=== PATIENT | female | born 1930 | race Caucasian/White ===

== ENCOUNTER 2017-07-19 20:38 | Emergency (ER) | payer MEDICARE, OTHER ==
[~2017-07-19] VITALS: Ht 162.6 cm; Wt 79.4 kg
[~2017-07-19 20:38] MED LIST: ASPIRIN CHILDRE81 MG PO; BACTRIM 400 MG-1 TAB PO; BACTRIM DS 8001 TAB PO; CEPHALEXIN500 MG PO; IRON TABLETS325 MG PO; KEFLEX 500MG.500 MG PO; KEFLEX500 M1 PO; LEVOTHYROXIN0.112 M1 PO; NORVASC 10MG. T10 MG PO; OMEGA 31000 MG PO; PLAVIX 75MG TAB75 MG PO; PRADAXA150 MG PO; PROTEGRA ANTIOX1 SGL PO; VYTORIN 10 MG-41 TAB PO; XANAX 0.5MG TA0.5 MG PO; ZOLOFT100 MG PO
--- NOTE | 2017-07-19 20:54 | Emergency Room Report ---
History of Present Illness Time Seen by 2045 Presenting Problem in Triage Pt arrived:Wheelchair Presenting Problem:LEFT KNEE PAIN WORSE WITH FLEXION. 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 N Clinical Suspician of Infection? N Mental Status: 1 - Regular (Normal Baseline) Sepsis Risk:Low Sepsis Risk Have you (or family members/close friends) recently traveled outside the [place]? N If Yes, where/when: Have you had exposure to infectious disease within the past month? N TB? Other? Specify: Source patient, RN notes reviewed, family, old records Exam Limitations no limitations Comment atraumatic injury to lt knee this afternoon - no fall or known injury - pt has hx of djd- Cardiac Chest Pain Chest pain indicative of cardiac No Timing/Duration this evening Severity moderate ALLERGIES Coded Allergies: No Known Allergies (02/04/16) Home Medications Active Scripts SULFAMETHOXAZOLE/TRIMETHOPRIM (Sulfamethoxazole-Tmp Ds Tablet) 1 TAB PO BID #6 TAB Prov: 11/16/14 SULFAMETHOXAZOLE/TRIMETHOPRIM (Bactrim 400-80 MG Tablet) 1 TAB PO BID #14 TAB Prov: 02/04/16 CEPHALEXIN (Keflex 500MG Capsule) 500 MG PO QID #28 CAP Prov: 07/19/15 Ferrous Sulfate (Iron Tablet) 325 MG PO DAILY #30 Ref 2 Prov: 06/20/12 Reported Medications Ezetimibe/Simvastatin (Vytorin 10-40 MG Tablet) 1 TAB PO DAILY Alprazolam (Xanax 0.5MG) 0.5 MG PO DAILY Levothyroxine Sodium (Levothyroxine 0.112MG) 0.125 MG PO DAILY AMLODIPINE BESYLATE (Norvasc) 10 MG PO DAILY SERTRALINE HYDROCHLORIDE (Zoloft 100MG) 100 MG PO DAILY ASPIRIN (Aspirin) 81 MG PO DAILY History Medical History General Angina: No [place]: No Hypertension? Yes Hyperlipidemia? No CHF? No COPD? No Asthma? No Hernia? Yes Thyroid Problems? Yes CVA? Yes Seizures? No Diabetes? No End Stage Renal Disease? No UTI? No Stones? No GB Disease: No Nephritic Syndrome? No Asplenia? No Hepatitis? No Cataracts? No Glaucoma? No MRSA? No TB? No Cancer? No Immunization Hx DT/Tetanus 1-4 YRS Flu [id number] Pneumonia Received In Past Surgical Hx Previous Surgery?Y DENISE THYROID RT ANKLE PINNING PACEMAKER PLACED 2010 Family History Family Hx Diabetes Yes CAD No Hypertension No Hyperlipidemia No Cancer Yes TB No Social History Smoking Hx Smoker: Never Smoker Tobacco: No Type Cigarettes Alcohol Alcohol: No Drugs none Review of Systems All Other Systems Reviewed and Negative Constitutional denies fever Eyes denies drainage ENT denies: ear discharge. Respiratory denies cough, denies shortness of breath, denies wheezing Cardiovascular denies chest pain, denies palpitations, denies syncope Gastrointestinal denies abdominal pain, denies diarrhea, denies vomiting Genitourinary denies: dysuria, frequency, hesitancy, hematuria. Musculoskeletal see HPI, denies back pain, joint pain, joint swelling, denies neck pain Skin denies rash Psychiatric/Neurological denies headache, denies seizure Physical Exam Vital Signs Vital Signs Date Time Temp Pulse Resp B/P Pulse O2 O2 Flow FiO2 Ox Delivery Rate 07/19 2041 98.9 71 20 174/79 95 - WBC >12,000 or <4,000 or 10% bands? 2 or more SIRS Criteria Met? B/P:174/79 MAP:110 Creatinine >2.0? UA output<0.5ml/kg/hr for 2 hrs? Platelet count >100,000? Lactate >2.0mmol/1? INR >1.2 or PTT > than 60 sec? Evidence of Organ Dysfunction? Provider documented clinical suspician of infection? N Sepsis Criteria Count: 1 Sepsis Risk: Low Sepsis Risk General Appearance no apparent distress Eye Exam - bilateral eye PERRL, bilateral eye EOMI Ear, Nose, Throat normal ENT inspection Neck supple Respiratory Status No: respiratory distress. 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 No Results/Orders Orders Procedure Date/time Status KNEE-3 VIEWS-LT 07/19 2053 Active XRAY/CT/US XRAY/CT/US XRAY knee XR interpretation by reviewed by me Xray Results no fracture seen, abnormal Departure Departure Time of Disposition 2132 Disposition DC Home or Self Care(routine) Clinical Impression Primary Impression: Arthritis of knee, left Condition STABLE Referrals Ronaldo Toribio MD (Family) Patient Instructions DI for Arthralgia Additional Instructions use meds and call pcp friday for follow up and wt bearing as [place] Discharge Counseling Counseled pt/family regarding diagnosis, test results, medications/RX, follow up needs Prescriptions Current Visit Scripts Prednisone (Prednisone 20MG) 20 MG PO BID #10 TAB ED Critical Care Critical Care No at [id number]
--- NOTE | 2017-07-19 20:54 | Emergency Room Report ---
History of Present Illness Time Seen by 2045 Presenting Problem in Triage Pt arrived:Wheelchair Presenting Problem:LEFT KNEE PAIN WORSE WITH FLEXION. 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 N Clinical Suspician of Infection? N Mental Status: 1 - Regular (Normal Baseline) Sepsis Risk:Low Sepsis Risk Have you (or family members/close friends) recently traveled outside the [place]? N If Yes, where/when: Have you had exposure to infectious disease within the past month? N TB? Other? Specify: Source patient, RN notes reviewed, family, old records Exam Limitations no limitations Comment atraumatic injury to lt knee this afternoon - no fall or known injury - pt has hx of djd- Cardiac Chest Pain Chest pain indicative of cardiac No Timing/Duration this evening Severity moderate ALLERGIES Coded Allergies: No Known Allergies (02/04/16) Home Medications Active Scripts SULFAMETHOXAZOLE/TRIMETHOPRIM (Sulfamethoxazole-Tmp Ds Tablet) 1 TAB PO BID #6 TAB Prov: 11/16/14 SULFAMETHOXAZOLE/TRIMETHOPRIM (Bactrim 400-80 MG Tablet) 1 TAB PO BID #14 TAB Prov: 02/04/16 CEPHALEXIN (Keflex 500MG Capsule) 500 MG PO QID #28 CAP Prov: 07/19/15 Ferrous Sulfate (Iron Tablet) 325 MG PO DAILY #30 Ref 2 Prov: 06/20/12 Reported Medications Ezetimibe/Simvastatin (Vytorin 10-40 MG Tablet) 1 TAB PO DAILY Alprazolam (Xanax 0.5MG) 0.5 MG PO DAILY Levothyroxine Sodium (Levothyroxine 0.112MG) 0.125 MG PO DAILY AMLODIPINE BESYLATE (Norvasc) 10 MG PO DAILY SERTRALINE HYDROCHLORIDE (Zoloft 100MG) 100 MG PO DAILY ASPIRIN (Aspirin) 81 MG PO DAILY History Medical History General Angina: No [place]: No Hypertension? Yes Hyperlipidemia? No CHF? No COPD? No Asthma? No Hernia? Yes Thyroid Problems? Yes CVA? Yes Seizures? No Diabetes? No End Stage Renal Disease? No UTI? No Stones? No GB Disease: No Nephritic Syndrome? No Asplenia? No Hepatitis? No Cataracts? No Glaucoma? No MRSA? No TB? No Cancer? No Immunization Hx DT/Tetanus 1-4 YRS Flu [id number] Pneumonia Received In Past Surgical Hx Previous Surgery?Y DENISE THYROID RT ANKLE PINNING PACEMAKER PLACED 2010 Family History Family Hx Diabetes Yes CAD No Hypertension No Hyperlipidemia No Cancer Yes TB No Social History Smoking Hx Smoker: Never Smoker Tobacco: No Type Cigarettes Alcohol Alcohol: No Drugs none Review of Systems All Other Systems Reviewed and Negative Constitutional denies fever Eyes denies drainage ENT denies: ear discharge. Respiratory denies cough, denies shortness of breath, denies wheezing Cardiovascular denies chest pain, denies palpitations, denies syncope Gastrointestinal denies abdominal pain, denies diarrhea, denies vomiting Genitourinary denies: dysuria, frequency, hesitancy, hematuria. Musculoskeletal see HPI, denies back pain, joint pain, joint swelling, denies neck pain Skin denies rash Psychiatric/Neurological denies headache, denies seizure Physical Exam Vital Signs Vital Signs Date Time Temp Pulse Resp B/P Pulse O2 O2 Flow FiO2 Ox Delivery Rate 07/19 2041 98.9 71 20 174/79 95 - WBC >12,000 or <4,000 or 10% bands? 2 or more SIRS Criteria Met? B/P:174/79 MAP:110 Creatinine >2.0? UA output<0.5ml/kg/hr for 2 hrs? Platelet count >100,000? Lactate >2.0mmol/1? INR >1.2 or PTT > than 60 sec? Evidence of Organ Dysfunction? Provider documented clinical suspician of infection? N Sepsis Criteria Count: 1 Sepsis Risk: Low Sepsis Risk General Appearance no apparent distress Eye Exam - bilateral eye PERRL, bilateral eye EOMI Ear, Nose, Throat normal ENT inspection Neck supple Respiratory Status No: respiratory distress. 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 No Results/Orders Orders Procedure Date/time Status KNEE-3 VIEWS-LT 07/19 2053 Active XRAY/CT/US XRAY/CT/US XRAY knee XR interpretation by reviewed by me Xray Results no fracture seen, abnormal Departure Departure Time of Disposition 2132 Disposition DC Home or Self Care(routine) Clinical Impression Primary Impression: Arthritis of knee, left Condition STABLE Referrals Ronaldo Toribio MD (Family) Patient Instructions DI for Arthralgia Additional Instructions use meds and call pcp friday for follow up and wt bearing as napoleon Discharge Counseling Counseled pt/family regarding diagnosis, test results, medications/RX, follow up needs Prescriptions Current Visit Scripts Prednisone (Prednisone 20MG) 20 MG PO BID #10 TAB ED Critical Care Critical Care No at [id number]
[2017-07-19] MEDS ORDERED: PREDNISONE 20MG20 MG PO (21:43)
[2017-07-19 21:59] VITALS: BP 180/78
--- NOTE | 2017-07-20 08:03 | RADIOLOGY REPORT PS360 ---
KNEE-3 VIEWS-LT HISTORY: Left knee pain PAIN ORDERING PHYSICIAN: Penny Parks MD PATIENT AGE: 86 years COMPARISON: None FINDINGS: Moderate osteoarthritic changes are present involving the lateral compartment with mild osteoarthritis of the medial compartment and patellofemoral joint. Suprapatellar effusion is present. Calcification is noted along the major aspect of the knee joint consistent with a loose body measuring 11 mm. No acute fracture or dislocation. No lytic or blastic change. IMPRESSION: Osteoarthritis with knee joint effusion and intra-articular loose body
== END 2017-07-19 22:00 | disposition home or self-care (01) ==
LOC: ER 20:38
DX: M13.862 Other specified arthritis, left knee (principal); Z86.73 Personal history of transient ischemic attack (TIA), and cerebral infarction without residual deficits; I10 Essential (primary) hypertension; E07.9 Disorder of thyroid, unspecified; Z79.82 Long term (current) use of aspirin; Z79.899 Other long term (current) drug therapy

== ENCOUNTER 2017-07-31 18:45 | Observation (INO) | payer MEDICARE, OTHER ==
[~2017-07-31] VITALS: Ht 162.6 cm; Wt 82.3 kg
[~2017-07-31 18:45] MED LIST changes: +PREDNISONE 20MG20 MG PO
[2017-07-31 18:47] VITALS: BP 164/78
[2017-07-31] MEDS ORDERED: XARELTO20 MG PO (18:52)
[2017-07-31] MEDS ORDERED: ATENOLOL25 MG PO (18:53)
[2017-07-31] MEDS ORDERED: SIMVASTATIN20 MG PO (18:53)
--- NOTE | 2017-07-31 18:56 | Emergency Room Report ---
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 PT REPORTS FALL 2 WEEKS AGO, WAS SEEN IN ER AT THAT TIME. 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 N Clinical Suspician of Infection? N Mental Status: 1 - Regular (Normal Baseline) Sepsis Risk:Low Sepsis Risk Have you (or family members/close friends) recently traveled outside the [place]? N If Yes, where/when: Have you had exposure to infectious disease within the past month? N TB? Other? Specify: Source patient, RN notes reviewed, family, RN/MD Exam Limitations no limitations Comment This is a 86-year-old lady brought into the ER by EMS with LEFT knee pain, nontraumatic, sudden onset half an hour prior to arrival, while attempting to get into her car, in a parking lot. Patient had a similar episode, when she was also seen in this ER, with pain in the same joint, LEFT knee. At the time of her LEFT x-ray was negative, patient was discharged home on prednisone for 5 days, which actually helped her symptoms. Patient is currently on Xarelto, due to her Hx of atrial fibrillation. ALLERGIES Coded Allergies: No Known Allergies (02/04/16) Home Medications Active Scripts Ferrous Sulfate (Iron Tablet) 325 MG PO DAILY #30 Ref 2 Prov: 06/20/12 Reported Medications Alprazolam (Xanax 0.5MG) 0.5 MG PO DAILY Levothyroxine Sodium (Levothyroxine 0.112MG) 0.125 MG PO DAILY SERTRALINE HYDROCHLORIDE (Zoloft 100MG) 100 MG PO DAILY ASPIRIN (Aspirin) 81 MG PO DAILY Rivaroxaban (Xarelto) 15 MG PO DAILY 90 Days Atenolol (Atenolol) 25 MG PO DAILY Simvastatin 20 MG PO DAILY #90 (Angela HENDRICKS,Sulaiman Walker) History Medical History General CAD? No Angina: No [place]: No Hypertension? Yes Hyperlipidemia? No CHF? No DVT? No PE? No COPD? No Asthma? No Anemia? No GERD? No Gastric ulcers? No GI Bleed? No Hernia? Yes Thyroid Problems? Yes Hypothyroidism? No CVA? No Seizures? No Diabetes? No Renal Insuffiency? No End Stage Renal Disease? No UTI? No Stones? No GB Disease: No Nephritic Syndrome? No Asplenia? No Hepatitis? No Sickle Cell Disease? No Arthritis? No Migraines? No Cataracts? No Glaucoma? No MRSA? No HIV? No TB? No Anxiety? No Depression? No Cancer? No More? No Immunization Hx DT/Tetanus 1-4 YRS Flu [id number] Pneumonia Received In Past Surgical Hx Previous Surgery?Y DENISE THYROID RT ANKLE PINNING PACEMAKER PLACED 2010 Family History Family Hx Diabetes Yes CAD No Hypertension No Hyperlipidemia No Cancer Yes TB No Social History Smoking Hx Smoker: Never Smoker Tobacco: No Alcohol Alcohol: No (Sulaiman Miller MD) Review of Systems All Other Systems Reviewed and Negative Musculoskeletal joint pain (LEFT knee pain) (Sulaiman Miller MD) Physical Exam Vital Signs Vital Signs Date Time Temp Pulse Resp B/P Pulse O2 O2 Flow FiO2 Ox Delivery Rate 07/31 1941 98.1 76 18 152/107 95 07/31 1847 98.1 73 18 164/78 95 General Appearance normal appearance, WD/WN, mild distress Respiratory Status Yes: trachea midline, chest symmetrical, non tender chest. No: respiratory distress. Lung Sounds bilateral: normal breath sounds, lungs clear. Cardiovascular no peripheral edema, irregularly irregular, pacemaker present Gastrointestinal normal bowel sounds, normal exam, non tender, soft, no organomegaly Extremities LEFT knee tender to palpation, swollen, unable to fully extend or flex LEFT knee. 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 No Comment 20:00 - case signed out to Dr Parks, pending CT scan left knee reading. Results/Orders Current Medication Orders Sig/Carolyn Start time Last Medication Dose Route Stop Time Status Admin Sodium Chloride 10 ML PRN PRN 07/31 2030 AC IV 08/01 2027 Orders Procedure Date/time Status IV SALINE LOCK 07/31 2027 Active SED RATE 07/31 2027 Active COMPLETE METABOLIC PANEL 07/31 2027 Active CBC WITH AUTO DIFF 07/31 2027 Active Decision to admit 07/[address] EXT.LOWER-LT-W/O CONTRAST 07/[address] SCAN REQUEST 07/31 1909 Complete XRAY/CT/US XRAY/CT/US CT knee CT interpretation by discussed w/radiologist Time results known: 2032 CT Results no fracture seen (see report), abnormal (Penny Parks MD) Departure Departure Time of Disposition 1999 Disposition Still a Patient Condition STABLE ED Critical Care Critical Care No (Sulaiman Miller MD) Departure Clinical Impression Primary Impression: Knee internal derangement Qualifiers: Laterality: left Qualified Code: M23.92 - Unspecified internal derangement of left knee Secondary Impressions: Effusion of knee joint, left, Impaired weight bearing, Tricompartment osteoarthritis of left knee Referrals Ronaldo Toribio MD (Family) discussed with dr miranda and dr lori Blanton MD,Samy MIRANDA MD, SARAH BERRIOS (Penny Parks MD) at 195 at 2032
--- NOTE | 2017-07-31 18:56 | Emergency Room Report ---
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 PT REPORTS FALL 2 WEEKS AGO, WAS SEEN IN ER AT THAT TIME. 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 N Clinical Suspician of Infection? N Mental Status: 1 - Regular (Normal Baseline) Sepsis Risk:Low Sepsis Risk Have you (or family members/close friends) recently traveled outside the [place]? N If Yes, where/when: Have you had exposure to infectious disease within the past month? N TB? Other? Specify: Source patient, RN notes reviewed, family, RN/MD Exam Limitations no limitations Comment This is a 86-year-old lady brought into the ER by EMS with LEFT knee pain, nontraumatic, sudden onset half an hour prior to arrival, while attempting to get into her car, in a parking lot. Patient had a similar episode, when she was also seen in this ER, with pain in the same joint, LEFT knee. At the time of her LEFT x-ray was negative, patient was discharged home on prednisone for 5 days, which actually helped her symptoms. Patient is currently on Xarelto, due to her Hx of atrial fibrillation. ALLERGIES Coded Allergies: No Known Allergies (02/04/16) Home Medications Active Scripts Ferrous Sulfate (Iron Tablet) 325 MG PO DAILY #30 Ref 2 Prov: 06/20/12 Reported Medications Alprazolam (Xanax 0.5MG) 0.5 MG PO DAILY Levothyroxine Sodium (Levothyroxine 0.112MG) 0.125 MG PO DAILY SERTRALINE HYDROCHLORIDE (Zoloft 100MG) 100 MG PO DAILY ASPIRIN (Aspirin) 81 MG PO DAILY Rivaroxaban (Xarelto) 15 MG PO DAILY 90 Days Atenolol (Atenolol) 25 MG PO DAILY Simvastatin 20 MG PO DAILY #90 (Angela HENDRICKS,Sulaiman Walker) History Medical History General CAD? No Angina: No [place]: No Hypertension? Yes Hyperlipidemia? No CHF? No DVT? No PE? No COPD? No Asthma? No Anemia? No GERD? No Gastric ulcers? No GI Bleed? No Hernia? Yes Thyroid Problems? Yes Hypothyroidism? No CVA? No Seizures? No Diabetes? No Renal Insuffiency? No End Stage Renal Disease? No UTI? No Stones? No GB Disease: No Nephritic Syndrome? No Asplenia? No Hepatitis? No Sickle Cell Disease? No Arthritis? No Migraines? No Cataracts? No Glaucoma? No MRSA? No HIV? No TB? No Anxiety? No Depression? No Cancer? No More? No Immunization Hx DT/Tetanus 1-4 YRS Flu [id number] Pneumonia Received In Past Surgical Hx Previous Surgery?Y DENISE THYROID RT ANKLE PINNING PACEMAKER PLACED 2010 Family History Family Hx Diabetes Yes CAD No Hypertension No Hyperlipidemia No Cancer Yes TB No Social History Smoking Hx Smoker: Never Smoker Tobacco: No Alcohol Alcohol: No (Sulaiman Miller MD) Review of Systems All Other Systems Reviewed and Negative Musculoskeletal joint pain (LEFT knee pain) (Sulaiman Miller MD) Physical Exam Vital Signs Vital Signs Date Time Temp Pulse Resp B/P Pulse O2 O2 Flow FiO2 Ox Delivery Rate 07/31 1941 98.1 76 18 152/107 95 07/31 1847 98.1 73 18 164/78 95 General Appearance normal appearance, WD/WN, mild distress Respiratory Status Yes: trachea midline, chest symmetrical, non tender chest. No: respiratory distress. Lung Sounds bilateral: normal breath sounds, lungs clear. Cardiovascular no peripheral edema, irregularly irregular, pacemaker present Gastrointestinal normal bowel sounds, normal exam, non tender, soft, no organomegaly Extremities LEFT knee tender to palpation, swollen, unable to fully extend or flex LEFT knee. 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 No Comment 20:00 - case signed out to Dr Parks, pending CT scan left knee reading. Results/Orders Current Medication Orders Sig/Carolyn Start time Last Medication Dose Route Stop Time Status Admin Sodium Chloride 10 ML PRN PRN 07/31 2030 AC IV 08/01 2027 Orders Procedure Date/time Status IV SALINE LOCK 07/31 2027 Active SED RATE 07/31 2027 Active COMPLETE METABOLIC PANEL 07/31 2027 Active CBC WITH AUTO DIFF 07/31 2027 Active Decision to admit 07/[address] EXT.LOWER-LT-W/O CONTRAST 07/[address] SCAN REQUEST 07/31 1909 Complete XRAY/CT/US XRAY/CT/US CT knee CT interpretation by discussed w/radiologist Time results known: 2032 CT Results no fracture seen (see report), abnormal (Penny Parks MD) Departure Departure Time of Disposition 1999 Disposition Still a Patient Condition STABLE ED Critical Care Critical Care No (Sulaiman Miller MD) Departure Clinical Impression Primary Impression: Knee internal derangement Qualifiers: Laterality: left Qualified Code: M23.92 - Unspecified internal derangement of left knee Secondary Impressions: Effusion of knee joint, left, Impaired weight bearing, Tricompartment osteoarthritis of left knee Referrals Ronaldo Toribio MD (Family) discussed with dr miranda and dr lori Blanton MD,Samy MIRANDA MD, SARAH BERRIOS (Penny Parks MD) at 195 at 2032
[2017-07-31 20:51] LABS: HEMOGLOBIN 12.5 g/dL (12.2-16.2); LYMPH # 1.1 K/mm3 (0.7-4.5)
[2017-07-31 21:00] VITALS: BP 155/75
[2017-08-01 04:21] VITALS: BP 153/78
--- NOTE | 2017-08-01 06:24 | Discharge Summary Standard ---
Demographics: Admit date: 07/31/17 Chief complaint: LEFT knee pain PRIMARY DIAGNOSIS: LT KNEE INJURY Allergies: Coded Allergies: No Known Allergies (02/04/16) History of present illness: History of present illness: 86-year-old female with osteoarthritis of the LEFT knee presented to the emergency department for the second time in approximately 2 weeks with LEFT knee pain and difficulty ambulating. Patient had been seen in a couple weeks prior with pain in the LEFT knee and difficulty bending the knee. She was treated with a course of steroids and her knee pain improved. Yesterday afternoon patient had recurrence of knee pain with swelling and inability to bear weight on the affected extremity. Patient contacted my office and I recommended some Aleve and we would work on orthopedic referral as an outpatient. Patient was brought to the emergency department a few hours later by her family. In the emergency department workup was begun. Patient ultimately had a CT scan of the knee which ruled out a fracture, showed tricompartmental osteoarthritis and a large LEFT knee joint effusion. Because of the patient's inability to bear weight and ambulate she was admitted for orthopedic consultation. Patient has not had fevers. She denies illness or malaise. Past medical history: Family HX Family Hx Insignificant No Diabetes Yes CAD No Hypertension No Hyperlipidemia No Cancer Yes TB No Immunization HX DT/Tetanus Unknown Flu [id number] Pneumonia Received In Past TB Test in last year No General CAD? No Angina: No [place]: No Hypertension? Yes Hyperlipidemia? No CHF? No DVT? No PE? No COPD? No Asthma? No Anemia? No GERD? No Gastric ulcers? No GI Bleed? No Hernia? Yes Thyroid Problems? Yes Hypothyroidism? No CVA? No Seizures? No Diabetes? No Renal Insuffiency? No UTI? No Stones? No GB Disease: No Nephritic Syndrome? No Asplenia? No Hepatitis? No Sickle Cell Disease? No Arthritis? No Migraines? No Cataracts? No Glaucoma? No MRSA? No HIV? No TB? No Anxiety? No Depression? No Cancer? No More? 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 No Patien't marital status is Patient's support system is good Review of systems: Constitutional No: chills, diaphoresis, fever, malaise, weakness. Respiratory No: cough, orthopnea, shortness of breath, SOB with excertion. Cardiovascular No chest pain, No edema, No palpitations Gastrointestinal/Abdominal no symptoms reported Genitourinary no symptoms reported. Musculoskeletal no symptoms reported. Neurological Yes: no symptoms reported. Exam: Lab data for last 24 hours: Laboratory Tests 07/31/172039: Sodium 137, Potassium 4.5, Chloride 104, Carbon Dioxide 28, BUN 20 H, Creatinine 0.9, Estimated Creat Clear 55, Estimated GFR (MDRD) 59, Glucose 147 H, Calcium 8.6, Total Bilirubin 0.2, AST 16, ALT 23, Alkaline Phosphatase 58, Total Protein 6.6, Albumin 3.3 L, Globulin 3.3 H, Albumin/Globulin Ratio 1.0 L, PT 10.8, INR 1.00, APTT 25.9, WBC 10.4, RBC 3.93 L, Hgb 12.5, Hct 36.9 L, MCV 93.9, RDW 12.9, Plt Count 144, MPV 8.1, Gran % 82.0 H, Gran # 8.5 H, Lymphocytes % 11.0, Monocytes % 5.9, Eosinophils % 0.8, Basophils % 0.3, Lymphocytes # 1.1, Monocytes # 0.6, Eosinophils # 0.1, Basophils # 0.0, PUBS MCHC 33.9, ESR 11, MCH 31.8 H Admission vital signs: 1ST Vital Signs Result Date Time Pulse Ox 95 07/31 1847 B/P 164/78 07/31 1847 Temp 98.1 07/31 1847 Pulse 73 07/31 1847 Resp 18 07/31 1847 O2 Delivery ROOM AIR 07/31 2100 Exam General appearance: awake, no acute distress ENT: mucous membranes moist Neck: no carotid bruit, no JVD Cardiovascular: regular rate & rhythm Respiratory: clear to auscultation ABD: soft, no tenderness Musculoskeletal: patient has bony deformity/arthritic changes of the LEFT knee. Patient can extend the knee to near neutral. Knee flexion is limited to about 20 degrees. Joint line is painful medially and laterally LEFT knee. There is a palpable suprapatellar effusion Hospital Course Hospital Course: Patient was admitted for orthopedic consultation. She was evaluated by Dr. Ozuna and underwent corticosteroid injection of the LEFT knee. This improved patient's pain as well as mobility. Patient was discharged home later in the day Medications Medications: Discharge meds are as noted. Follow up Follow up in office in: 3 DAYS with: Catarino HENDRICKS,Ronaldo
--- NOTE | 2017-08-01 07:21 | PHARMACY CLINIC NOTE ---
Patient Demographics Patient Demographics Admission date: 07/31/17 Date: 08/01/17 Time: 07 Allergies Coded Allergies: No Known Allergies (02/04/16) HEIGHT- FT: 5 IN: 4.00 K.300 VTE General Information Labs: Laboratory Tests 07/31 2040 Coagulation PT (9.4 - 11.8 SECONDS) 10.8 INR (0.9 - 1.1) 1.00 APTT (23.6 - 34.0 SECONDS) 25.9 Hematology Hgb (12.2 - 16.2 g/dL) 12.5 Hct (37.0 - 47.0 %) 36.9 L Plt Count (142 - 424 K/mm3) 144 Disclaimer The following section includes nursing documentation that has been pulled in for pharmacy review. Patient's VTE score: 2 Patient's VTE Risk: VERY LOW RISK Clinical trial participant? No VTE prophylaxis [id number] VTE prophylaxis ordered? Yes Type of prophylaxis/treatment: NICO at 0721
[2017-08-01 08:00] VITALS: BP 177/68
[2017-08-01 08:50] VITALS: BP 177/68
--- NOTE | 2017-08-01 09:22 | RADIOLOGY REPORT PS360 ---
CT EXT.LOWER-LT-W/O CONTRAST COMPARISON: Radiograph of 07/19/2017 HISTORY: Left knee pain and swelling, abnormal radiograph suggesting loose body TECHNIQUE: Axial images obtained with sagittal and coronal reformats. 3-D reformatted images also generated and reviewed FINDINGS: No fracture or dislocation. No aggressive lytic or blastic change apparent. Moderate osteoarthritic changes involve all 3 compartments with decrease in the joint space, osteosclerosis of the endplates, osteophyte formation, and subarticular cystic change which is present along the medial aspect of the medial tibial plateau. There is a moderate sized knee joint effusion which is somewhat hyperdense measuring up to 60 Hounsfield units. No fat fluid levels evident. There is a 10 mm calcific density which is posterior to the proximal tibia. This is to represent a loose body. Previously this calcification was noted along the anterior aspect of the knee joint but now has migrated posteriorly. IMPRESSION: 1. Tricompartmental osteoarthritic changes. 2. Large suprapatellar effusion which is somewhat hyperdense suggesting underlying complex effusion. Intra-articular hemorrhage or infection could cause this finding. 3. Migraine loose intra-articular body now present posterior to the proximal tibia measuring 1 cm
--- NOTE | 2017-08-01 13:21 | CONSULT NOTE ---
Consultation findings: Referring physician: Dr. Parks Date of examination: 08/01/17 Time of examination: 1100 Exam findings: History of present illness: Patient is an 86-year-old female with known osteoarthritis of the LEFT knee admitted to hospital from the emergency department with LEFT knee pain and difficulty ambulating. Patient had been seen in the ER a couple weeks prior with pain in the LEFT knee and difficulty bending the knee. She was treated with a course of steroids and her knee pain improved. Yesterday afternoon patient had recurrence of knee pain with swelling and inability to bear weight on the affected extremity. She presented to the ER again and was admitted because of her inability to weight-bear. She had a CT scan of the knee which ruled out a fracture but showed tricompartmental osteoarthritis with a large hyperdense complex effusion suggestive of either intra-articular hemorrhage or infection. Because of the patient's inability to bear weight and ambulate she was admitted and I was consulted for orthopedic input. She localized the pain to anteromedial aspect of the knee. She says she does not have much pain at rest. The pain is worse with knee movements and weightbearing. No history of any giving out or locking. No history of any previous knee injections or physical therapy. She reports no fever, chills or rigors. She feels well within herself and is eating and drinking well. She denies illness or malaise. There is no history of any recent injury. She is on low-dose aspirin. She was seen by the physical therapist this morning and apparently walked about 100-150 feet with the help of walker. Past medical history: Family HX Family Hx Insignificant No Diabetes Yes CAD No Hypertension No Hyperlipidemia No Cancer Yes TB No Immunization HX DT/Tetanus Unknown Flu [id number] Pneumonia Received In Past TB Test in last year No General CAD? No Angina: No [place]: No Hypertension? Yes Hyperlipidemia? No CHF? No DVT? No PE? No COPD? No Asthma? No Anemia? No GERD? No Gastric ulcers? No GI Bleed? No Hernia? Yes Thyroid Problems? Yes Hypothyroidism? No CVA? No Seizures? No Diabetes? No Renal Insuffiency? No UTI? No Stones? No GB Disease: No Nephritic Syndrome? No Asplenia? No Hepatitis? No Sickle Cell Disease? No Arthritis? No Migraines? No Cataracts? No Glaucoma? No MRSA? No HIV? No TB? No Anxiety? No Depression? No Cancer? No More? 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 No Patien't marital status is Patient's support system is good Review of systems: Constitutional No: chills, diaphoresis, fever, malaise, weakness. Respiratory No: cough, orthopnea, shortness of breath, SOB with excertion. Cardiovascular No chest pain, No edema, No palpitations Gastrointestinal/Abdominal no symptoms reported Genitourinary no symptoms reported. Musculoskeletal no symptoms reported. Neurological Yes: no symptoms reported. Exam: Lab data for last 24 hours: 07/31/172039: Sodium 137, Potassium 4.5, Chloride 104, Carbon Dioxide 28, BUN 20 H, Creatinine 0.9, Estimated Creat Clear 55, Estimated GFR (MDRD) 59, Glucose 147 H, Calcium 8.6, Total Bilirubin 0.2, AST 16, ALT 23, Alkaline Phosphatase 58, Total Protein 6.6, Albumin 3.3 L, Globulin 3.3 H, Albumin/Globulin Ratio 1.0 L, PT 10.8, INR 1.00, APTT 25.9, WBC 10.4, RBC 3.93 L, Hgb 12.5, Hct 36.9 L, MCV 93.9, RDW 12.9, Plt Count 144, MPV 8.1, Gran % 82.0 H, Gran # 8.5 H, Lymphocytes % 11.0, Monocytes % 5.9, Eosinophils % 0.8, Basophils % 0.3, Lymphocytes # 1.1, Monocytes # 0.6, Eosinophils # 0.1, Basophils # 0.0, PUBS MCHC 33.9, ESR 11, MCH 31.8 H Admission vital signs: 1ST Vital Signs Result Date Time Pulse Ox 95 07/31 1847 B/P 164/78 07/31 1847 Temp 98.1 07/31 1847 Pulse 73 07/31 1847 Resp 18 07/31 1847 O2 Delivery ROOM AIR 07/31 2100 Exam General appearance: awake, alert, no acute distress ENT: mucous membranes moist Neck: no carotid bruit, no JVD Cardiovascular: regular rate & rhythm Respiratory: clear to auscultation ABD: soft, no tenderness On examination of her left knee, there is mild varus alignment. The skin over the left knee is normal. No signs of any erythema induration or ecchymosis noted. She has 2+ knee effusion. She is tender over all 3 compartments with more severe tenderness over the medial compartment and medial joint line. Knee range of motion is 0-90 of flexion. Terminal flexion is painful. Knee joint is ligamentously stable. Maral's test is painful but no click felt. Thigh and calf are soft and nontender. Distal neurovascular status is intact. Examination of both hip joints is unremarkable. Imaging: Noncontrast CT scan of her left knee performed on 07/31/2017 reviewed along with the radiologist report. IMPRESSION: 1. Tricompartmental osteoarthritic changes. 2. Large suprapatellar effusion which is somewhat hyperdense suggesting underlying complex effusion. Intra-articular hemorrhage or infection could cause this finding. 3. Migraine loose intra-articular body now present posterior to the proximal tibia measuring 1 cm 08/01/17 0922 BONAL / PS AT 0910 AT 0917 X-rays of her left knee performed on 07/19/2017 reviewed along with the radiologist report. IMPRESSION: Osteoarthritis with knee joint effusion and intra-articular loose body 07/20/17 0803 BONAL / PS AT 0757 AT 0758 Impression: 1. Tricompartmental osteoarthritis, left knee 2. Intra-articular loose body, left knee 3. Hemarthrosis, left knee Recommendations: I reviewed the clinical and imaging findings with the patient. I have discussed the diagnosis, natural history and management options in detail including both nonsurgical and surgical. To begin with I have recommended conservative management with rest, activity modification, icing, knee sleeve, weight loss, dietary supplements like glucosamine and chondroitin sulfate, use of a cane or other walking aids as appropriate, NSAIDs, physical therapy including knee range of motion and quadriceps strengthening exercises. We also discussed the role of intra-articular injections including both steroids and Visco supplementation injections. She opted for a steroid injection at this time. However, we deferred giving her intra-articular steroid injection in view of the hemarthrosis. Please see the procedure note below for details. All her questions were answered and she verbalized a good understanding. If medically appropriate , patient can be discharged from an orthopedic standpoint. Follow-up in my office 2 weeks/as needed. Thank you for the opportunity to participate in the care of this pleasant patient. Procedure: Aspiration left knee joint: An informed written consent was obtained after explaining the procedure, risks, benefits and alternatives. The skin was prepped in a sterile fashion with multiple chlorhexidine sticks. Local anesthesia was obtained with 5 cc of 1% lidocaine. I then introduced an 18- gauge needle into the suprapatellar pouch through the lateral suprapatellar approach and managed to aspirate 5 cc of bloodstained fluid. There is no pus or other signs of infection. In spite of repeated attempts I could not aspirate any more fluid possibly due to the fact that it has clotted. In view of the bloody aspirate, I deferred performing intra-articular steroid injection at this stage. Sterile dressing was applied. She tolerated the procedure well and there were no immediate complications. The aspirate was sent for Gram stain and culture and sensitivity. at [id number]
[2017-08-01 14:40] VITALS: BP 177/68
== END 2017-08-01 16:15 | disposition home or self-care (01) ==
LOC: ER 18:45 → 2ND 20:28 → ER 20:28 → 2ND 21:12
PROVIDERS: Emergency Medicine
PROC: 0S9D3ZZ Drainage of Left Knee Joint, Percutaneous Approach (ICD-10-PCS; principal; 2017-08-01)
DX: M25.062 Hemarthrosis, left knee (principal); M17.12 Unilateral primary osteoarthritis, left knee; I10 Essential (primary) hypertension; Z95.0 Presence of cardiac pacemaker; E07.9 Disorder of thyroid, unspecified; Z79.01 Long term (current) use of anticoagulants; Z79.82 Long term (current) use of aspirin; Z79.899 Other long term (current) drug therapy
CPT/HCPCS: G0378